=== PATIENT | male | born 1970 | race Caucasian/White ===

== ENCOUNTER 2017-04-15 16:00 | Inpatient (IN) | payer MEDICARE ==
[2017-04-15 16:45] LABS: GFR AFRICAN-AMERICAN > 60; GFR NON-AFRICAN AMERICAN > 60
[2017-04-15 16:46] LABS: ALB/GLOB RATIO 1.3 (1.0-2.1); ALT/SGPT 53 U/L (21-72); AST/SGOT 34 U/L (17-59); BASO # 0.1 K/uL (0.0-0.2); BASO % 0.8 % (0.0-2.0); BLOOD UREA NITROGEN 16 mg/dL (9-20); EOS # 0.2 K/uL (0.0-0.7); EOS % 2.3 % (0.0-4.0); HEMOGLOBIN 14.2 g/dL (12.0-18.0); LYMPH # 2.7 K/uL (1.0-4.3); LYMPH % 36.4 % (20.0-40.0); MEAN CELL VOLUME 87.6 fL (80.0-94.0); MEAN CORPUSCULAR HGB CONC 34.3 g/dL (33.0-37.0); MEAN PLATELET VOLUME 8.4 fL (7.2-11.7); MONO # 0.6 K/uL (0.0-0.8); MONO % 8.4 % (0.0-10.0); NEUT # 3.8 K/uL (1.8-7.0); NEUT % 52.1 % (50.0-75.0); NRBC % 0.1 % (0.0-2.0); RBC 4.74 Mil/uL (4.40-5.90); RED CELL DISTRIBUTION WIDTH 13.4 % (11.5-14.5); WHITE BLOOD COUNT 7.3 K/uL (4.8-10.8)
[2017-04-15 16:55] LABS: CK-MB 0.43 ng/mL (0.0-3.38)
--- NOTE | 2017-04-15 17:13 | RAD ---
HISTORY: cp COMPARISON: No prior. TECHNIQUE: Chest PA and lateral FINDINGS: LUNGS: No active pulmonary disease. PLEURA: No significant pleural effusion identified. No pneumothorax apparent. CARDIOVASCULAR: Borderline/mild cardiomegaly. OSSEOUS STRUCTURES: No significant abnormalities. VISUALIZED UPPER ABDOMEN: Normal. OTHER FINDINGS: None. IMPRESSION: No active disease.
--- NOTE | 2017-04-15 17:30 | C.PDOC ---
History Of Present Illness 46 y/o M c PMHx HLD p/w chest pain x 3 weeks. Pain is intermittent, occurring 3 times over the past 3 weeks in the setting of long walks. Pain resolves at rest. He denies associated dyspnea, nausea, vomiting, diaphoreiss, dizziness. Patient reports allergy to aspirin. Time Seen by Provider: 04/15/17 16:13 Chief Complaint (Nursing): Chest Pain Past Medical History Vital Signs: Last Vital Signs Temp 97.5 F L 04/15/17 16:03 Pulse 79 04/15/17 16:34 Resp 18 04/15/17 16:34 BP 128/86 04/15/17 16:34 Pulse Ox 98 04/15/17 16:34 - Medical History PMH: HTN, Hypercholesterolemia Surgical History: Back Surgery (2005) Family History: States: No Known Family Hx - Social History Hx Alcohol Use: No Hx Substance Use: No - Immunization History Hx Tetanus Toxoid Vaccination: No Hx Influenza Vaccination: No Hx Pneumococcal Vaccination: No Review Of Systems Except As Marked, All Systems Reviewed And Found Negative. Constitutional: Negative for: Fever Cardiovascular: Positive for: Chest Pain Respiratory: Negative for: Shortness of Breath Physical Exam - Physical Exam Additional Physical Exam Comments: Constitutional: No acute distress. Head: Normocephalic. Atraumatic. Eyes: PERRL. EOMI ENT: Moist mucous membranes. Neck: Supple. Cardiovascular: Regular rate. Radial pulses 2+ bilaterally. Chest: No tenderness. Respiratory: Clear to auscultation bilaterally. GI: Soft. Nontender. Nondistended. Back: No CVA tenderness. No midline tenderness. Musculoskeletal: No tenderness or swelling of extremities. Skin: No rash. Neurologic: Alert, no focal deficit. ED Course And Treatment - Laboratory Results Result Diagrams: 04/15/17 16:32 04/15/17 16:32 O2 Sat by Pulse Oximetry: 98 Medical Decision Making Medical Decision Making: EKG NSR 90 bpm, T wave inversions inferior, anterior, lateral. Discussed with Dr. Blood who states EKG today is different from EKG performed in office months ago. Accepts patient for cardiac observation. CXR no acute disease. Disposition Discussed With : Tao Blood - Disposition Disposition: HOSPITALIZED Disposition Time: 18:10 Condition: FAIR - POA Core Measure Indicators: Chest Pain - Clinical Impression Clinical Impression: Chest pain
--- NOTE | 2017-04-15 23:00 | CP.PCM.HP ---
History of Present Illness - History of Present Illness History of Present Illness: Cheif complain: chest pain HPI: 46 y/o wallisian M PMHx HLD, back pain , no cardiac history, p/w chest pain x 3 weeks, chest pain is pressure like, non radiating. Pain is intermittent , occurring 3 times over the past 3 weeks in the setting of long walks. Pain resolves at rest. He denies associated dyspnea, nausea, vomiting, diaphoreiss, dizziness. Patient reports allergy to aspirin. Present on Admission - Present on Admission Any Indicators Present on Admission: Yes History of DVT/PE: No History of Uncontrolled Diabetes: No Urinary Catheter: No Decubitus Ulcer Present: No Review of Systems - Review of Systems Systems not reviewed;Unavailable: Acuity of Condition - Constitutional Constitutional: Fatigue, Lethargy - EENT Eyes: absent: As Per HPI, Blind Spots, Blurred Vision, Change in Vision, Decreased Night Vision, Diplopia, Discharge, Dry Eye, Exophthalmos, Floaters, Irritation, Itchy Eyes, Loss of Peripheral Vision, Pain, Photophobia, Requires Corrective Lenses, Sees Flashes, Spots in Vision, Tunnel Vision, Other Visual Disturbances, Loss of Vision, Other Nose/Mouth/Throat: absent: As Per HPI, Epistaxis, Nasal Congestion, Nasal Discharge, Nasal Obstruction, Nasal Trauma, Nose Pain, Post Nasal Drip, Sinus Pain, Sinus Pressure, Bleeding Gums, Change in Voice, Dental Pain, Dry Mouth, Dysphagia, Halitosis, Hoarsness, Lip Swelling, Mouth Lesions, Mouth Pain, Odynophagia, Sore Throat, Throat Swelling, Tongue Swelling, Facial Pain, Neck Pain, Neck Mass, Other - Cardiovascular Cardiovascular: Chest Pain, Chest Pain with Activity. absent: As Per HPI, Acrocyanosis, Chest Pain at Rest, Claudication, Diaphoresis, Dyspnea, Dyspnea on Exertion, Edema, Irregular Heart Rhythm, Pain Radiating to Arm/Neck/Jaw, Leg Edema, Leg Ulcers, Lightheadedness, Orthopnea, Palpitations, Paroxysmal Nocturnal Dyspnea, Pedal Edema, Radiating Pain, Rapid Heart Rate, Slow Heart Rate, Syncope, Other - Respiratory Respiratory: absent: As Per HPI, Cough, Dyspnea, Hemoptysis, Dyspnea on Exertion , Wheezing, Snoring, Stridor, Pain on Inspiration, Chest Congestion, Excessive Mucous Production, Change in Mucous Color, Pain with Coughing, Other - Gastrointestinal Gastrointestinal: absent: As Per HPI, Abdominal Pain, Belching, Bloating, Change in Bowel Habits, Change in Stool Character, Coffee Ground Emesis, Constipation, Cramping, Diarrhea, Dyspepsia, Dysphagia, Early Satiety, Excessive Flatus, Fecal Incontinence, Heartburn, Hematemesis, Hematochezia, Loose Stools, Melena, Nausea, Odynophagia, Temesmus, Vomiting, Other Past Patient History - Past Social History Smoking Status: Never Smoked - CARDIAC Hx Hypercholesterolemia: Yes Hx Hypertension: Yes - PSYCHIATRIC Hx Substance Use: No - SURGICAL HISTORY Hx Surgeries: Yes - ANESTHESIA Hx Anesthesia: Yes Hx Anesthesia Reactions: No Meds Allergies/Adverse Reactions: Allergies Allergy/AdvReac Type Severity Reaction Status Date / Time aspirin Allergy RASH Verified 04/15/17 16:08 ibuprofen [From Motrin] Allergy RASH Verified 04/15/17 16:08 Physical Exam - Constitutional Appears: No Acute Distress - Head Exam Head Exam: ATRAUMATIC, NORMAL INSPECTION, NORMOCEPHALIC - Eye Exam Eye Exam: EOMI, Normal appearance, PERRL Pupil Exam: NORMAL ACCOMODATION, PERRL - ENT Exam ENT Exam: Mucous Membranes Moist, Normal Exam - Respiratory Exam Respiratory Exam: Clear to Auscultation Bilateral, NORMAL BREATHING PATTERN - Cardiovascular Exam Cardiovascular Exam: REGULAR RHYTHM - GI/Abdominal Exam GI & Abdominal Exam: Normal Bowel Sounds, Soft. absent: Tenderness - Rectal Exam Rectal Exam: Deferred - Neurological Exam Neurological exam: Alert, CN II-XII Intact, Normal Gait, Oriented x3, Reflexes Normal - Psychiatric Exam Psychiatric exam: Normal Affect, Normal Mood - Skin Skin Exam: Dry, Intact, Normal Color, Warm Results - Vital Signs Recent Vital Signs: Last Vital Signs Temp 97.5 F L 04/15/17 16:03 Pulse 82 04/15/17 19:33 Resp 12 04/15/17 19:33 BP 114/84 04/15/17 19:33 Pulse Ox 96 04/15/17 19:33 - Labs Result Diagrams: 04/15/17 16:32 04/15/17 16:32 Assessment & Plan (1) Back pain Status: Acute (2) Hyperlipidemia Status: Acute (3) Chest pain Assessment and Plan: rule out CA stress Myoveiw cardiac enzymes cardiac eval Status: Acute
[2017-04-15 23:28] LABS: HDL CHOLESTEROL 30 mg/dL (30-70)
[2017-04-15 23:31] LABS: CK-MB 0.46 ng/mL (0.0-3.38)
[2017-04-15 23:38] LABS: LDL CHOLESTEROL 135 mg/dL (0-129)
--- NOTE | 2017-04-16 08:35 | CP.PCM.PN ---
Subjective - Date & Time of Evaluation Date of Evaluation: 04/16/17 Time of Evaluation: 08:10 - Subjective Subjective: seen & examined, pt is for cardiac cath on , he has T-wave inversion in inf leads and cardaic enzymes are positive, although pt denies any chest pain now Objective - Vital Signs/Intake and Output Vital Signs (last 24 hours): Temp Pulse Resp BP Pulse Ox 97.7 F 67 17 126/84 97 04/16/17 07:10 04/16/17 07:10 04/16/17 07:10 04/16/17 07:10 04/16/17 07:10 - Medications Medications: Current Medications Clopidogrel Bisulfate (Plavix) 75 mg PO DAILY [facility] Enoxaparin Sodium (Lovenox) 40 mg SC DAILY [facility] Pneumococcal Polyvalent Vaccine (Pneumovax 23 Vaccine) 0.5 ml IM .ONCE ONE Stop: 04/16/17 10:01 Rosuvastatin Calcium (Crestor) 20 mg PO HS [facility] Last Admin: 04/15/17 23:14 Dose: 20 mg - Constitutional Appears: No Acute Distress - Head Exam Head Exam: ATRAUMATIC, NORMAL INSPECTION, NORMOCEPHALIC - Eye Exam Eye Exam: EOMI, Normal appearance, PERRL Pupil Exam: NORMAL ACCOMODATION, PERRL - Respiratory Exam Respiratory Exam: Decreased Breath Sounds, Rales, Rhonchi - Cardiovascular Exam Cardiovascular Exam: REGULAR RHYTHM, +S1, +S2. absent: Murmur - GI/Abdominal Exam GI & Abdominal Exam: Soft, Normal Bowel Sounds. absent: Tenderness Assessment and Plan (1) Back pain Status: Acute (2) Hyperlipidemia Status: Acute (3) Chest pain Assessment & Plan: pt is for cardica cath on Status: Acute
[2017-04-16] MEDS ORDERED: Enoxaparin 40 mg Syringe SC SCH (10:00)
[2017-04-16] MEDS ORDERED: Pneumococcal 23-Valent Vaccine IM ONE (10:00)
[2017-04-16 12:24] LABS: CK-MB 0.4 ng/mL (0.0-3.38)
--- NOTE | 2017-04-16 12:50 | CARD ---
APPROVED REPORT EKG Measurement Heart [id number] <Conclusion> Normal sinus rhythm Low voltage QRS T wave abnormality, consider inferior ischemia Abnormal ECG
--- NOTE | 2017-04-16 20:58 | CP.PCM.CON ---
History of Present Illness - History of Present Illness History of Present Illness: 46 y/o [place] male, a former smoker, history of hyperlipidemia prestented with recurring episodes of typical chest pain. No prior cardiac problems. arrived recently from [place] Past Patient History - Past Medical History & Family History Past Medical History?: Yes - Past Social History Smoking Status: Never Smoked - CARDIAC Hx Hypercholesterolemia: Yes Hx Hypertension: Yes - PULMONARY Hx Respiratory Disorders: No - NEUROLOGICAL Hx Neurological Disorder: No - HEENT Hx HEENT Problems: No - RENAL Hx Chronic Kidney Disease: No - ENDOCRINE/METABOLIC Hx Endocrine Disorders: No - HEMATOLOGICAL/ONCOLOGICAL Hx Blood Disorders: No - INTEGUMENTARY Hx Dermatological Problems: No - MUSCULOSKELETAL/RHEUMATOLOGICAL Hx Falls: No - GASTROINTESTINAL Hx Gastrointestinal Disorders: No - GENITOURINARY/GYNECOLOGICAL Hx Genitourinary Disorders: No - PSYCHIATRIC Hx Substance Use: No - SURGICAL HISTORY Hx Surgeries: Yes - ANESTHESIA Hx Anesthesia: Yes Hx Anesthesia Reactions: No Meds Allergies/Adverse Reactions: Allergies Allergy/AdvReac Type Severity Reaction Status Date / Time aspirin Allergy RASH Verified 04/15/17 16:08 ibuprofen [From Motrin] Allergy RASH Verified 04/15/17 16:08 - Medications Medications: Current Medications Clopidogrel Bisulfate (Plavix) 75 mg PO DAILY [facility] Last Admin: 04/16/17 10:11 Dose: 75 mg Enoxaparin Sodium (Lovenox) 70 mg SC BID [facility] Rosuvastatin Calcium (Crestor) 40 mg PO [facility] Results - Vital Signs Recent Vital Signs: Last Vital Signs Temp 97.8 F 04/16/17 15:30 Pulse 61 04/16/17 16:00 Resp 18 04/16/17 15:30 BP 131/86 04/16/17 15:30 Pulse Ox 97 04/16/17 15:30 - Labs Result Diagrams: 04/15/17 16:32 04/15/17 16:32 Assessment & Plan - Assessment and Plan (Free Text) Assessment: Mike pain, PR was ruled out Inferior ischemic EKG changes hyperlipidemia Plan: Contine Plavis and lopressor Start crestor 40 mg daily and therapeutic Lovenox Cath was recommended NB. Dictation system is down and that limited my note
[2017-04-17] MEDS: Enoxaparin 80 mg Syringe SC SCH ×2 (09:46→17:46)
--- NOTE | 2017-04-17 11:49 | CARD ---
APPROVED REPORT EKG Measurement Heart [id number] <Conclusion> Normal sinus rhythm Nonspecific T wave abnormality Abnormal ECG
--- NOTE | 2017-04-17 16:20 | CP.PCM.PN ---
Subjective - Date & Time of Evaluation Date of Evaluation: 04/17/17 Time of Evaluation: 16:18 - Subjective Subjective: no c/p or SOB Objective - Vital Signs/Intake and Output Vital Signs (last 24 hours): Temp Pulse Resp BP Pulse Ox 98.2 F 81 18 123/83 98 04/17/17 15:48 04/17/17 15:48 04/17/17 15:48 04/17/17 15:48 04/17/17 15:48 Intake and Output: 04/17/17 04/17/17 06:59 18:59 Intake Total 120 Output Total 250 Balance -130 - Medications Medications: Current Medications Clopidogrel Bisulfate (Plavix) 75 mg PO DAILY [facility] Last Admin: 04/17/17 09:46 Dose: 75 mg Enoxaparin Sodium (Lovenox) 70 mg SC BID [facility] Last Admin: 04/17/17 09:46 Dose: 70 mg Rosuvastatin Calcium (Crestor) 40 mg PO HS [facility] Last Admin: 04/16/17 21:55 Dose: 40 mg - Head Exam Head Exam: NORMAL INSPECTION - Eye Exam Eye Exam: Normal appearance - ENT Exam ENT Exam: Mucous Membranes Moist - Respiratory Exam Respiratory Exam: NORMAL BREATHING PATTERN - Cardiovascular Exam Cardiovascular Exam: REGULAR RHYTHM - GI/Abdominal Exam GI & Abdominal Exam: Normal Bowel Sounds - Back Exam Back Exam: NORMAL INSPECTION Assessment and Plan - Assessment and Plan (Free Text) Assessment: C/P GA r/o Hyperlipidemia Plan: NPO after mid night for Cath in AM
[2017-04-17] MEDS: Magnesium Hydroxide Susp 30 ml UD PO SCH (18:24)
--- NOTE | 2017-04-17 20:24 | CARD ---
APPROVED REPORT EXAM: Two-dimensional and M-mode echocardiogram with Doppler and color Doppler. Other Information Quality : FairRhythm : NSR INDICATION Chest Pain RISK FACTORS Hypertension Hyperlipidemia M-Mode DIMENSIONS RVDd1.77 (2.1-3.2cm)Left Atrium (MM)2.78 (2.5-4.0cm) IVSd0.94 (0.7-1.1cm)Aortic Root3.51 (2.2-3.7cm) LVDd4.30 (4.0-5.6cm)Aortic Cusp Exc.2.26 (1.5-2.0cm) PWd0.87 (0.7-1.1cm)FS (%) 41 % LVDs2.53 (2.0-3.8cm)LVEF (%)72 (>50%) Mitral Valve MV E Njeedyyw26.2cm/sMV A Ooqxrjrt67.2cm/sE/A ratio1.0 TDI E/Lateral E'0.0E/Medial E'0.0 Tricuspid Valve TR Peak Adhkgfmu708by/sTR Peak Gr.4yqIgOOBE78vsSf <Conclusion> normal size la,lv & ra rv. normal lv wall motion,thickness,systolic & diastolic function with lvef of 65-70%. normal aortic,mitral,tv & pv. trace mr,tr & pi with normal pulmonary systolic pressures of 20 mm of hg. trivial posterior pericardial effusion. normal size aortic root & ivc.
--- NOTE | 2017-04-17 21:28 | CP.PCM.PN ---
Subjective - Date & Time of Evaluation Date of Evaluation: 04/17/17 Time of Evaluation: 19:45 - Subjective Subjective: Pt seen & examined, NPO after mid night for Cath in AM Objective - Vital Signs/Intake and Output Vital Signs (last 24 hours): Temp Pulse Resp BP Pulse Ox 98.2 F 81 18 123/83 98 04/17/17 15:48 04/17/17 15:48 04/17/17 15:48 04/17/17 15:48 04/17/17 15:48 - Medications Medications: Current Medications Clopidogrel Bisulfate (Plavix) 75 mg PO DAILY [facility] Last Admin: 04/17/17 09:46 Dose: 75 mg Enoxaparin Sodium (Lovenox) 70 mg SC BID [facility] Last Admin: 04/17/17 17:46 Dose: 70 mg Magnesium Hydroxide (Milk Of Magnesia) 30 ml PO DAILY [facility] Last Admin: 04/17/17 18:24 Dose: 30 ml Rosuvastatin Calcium (Crestor) 40 mg PO HS [facility] Last Admin: 04/16/17 21:55 Dose: 40 mg - Constitutional Appears: No Acute Distress - Head Exam Head Exam: ATRAUMATIC, NORMAL INSPECTION, NORMOCEPHALIC - Eye Exam Eye Exam: EOMI, Normal appearance, PERRL Pupil Exam: NORMAL ACCOMODATION, PERRL - Respiratory Exam Respiratory Exam: Clear to Ausculation Bilateral, NORMAL BREATHING PATTERN - Cardiovascular Exam Cardiovascular Exam: REGULAR RHYTHM, +S1, +S2. absent: Murmur - GI/Abdominal Exam GI & Abdominal Exam: Soft, Normal Bowel Sounds. absent: Tenderness - Back Exam Back Exam: NORMAL INSPECTION - Neurological Exam Neurological Exam: Alert, Awake, CN II-XII Intact, Normal Gait, Oriented x3 Assessment and Plan (1) Back pain Status: Acute (2) Hyperlipidemia Status: Acute (3) Chest pain Assessment & Plan: NPO after mid night for Cath in AM Status: Acute
[2017-04-18] MEDS: Enoxaparin 80 mg Syringe SC SCH ×2 (09:09→18:12)
[2017-04-18] MEDS: Magnesium Hydroxide Susp 30 ml UD PO SCH (09:09)
--- NOTE | 2017-04-18 10:18 | CP.PCM.PN ---
Subjective - Date & Time of Evaluation Date of Evaluation: 04/18/17 Time of Evaluation: 08:30 - Subjective Subjective: Pt seen and examined, clinically unchanged, pt is for angioplasty tomorrow to his RCA Objective - Vital Signs/Intake and Output Vital Signs (last 24 hours): Temp Pulse Resp BP Pulse Ox 98.3 F 64 18 121/85 97 04/18/17 07:05 04/18/17 07:05 04/18/17 07:05 04/18/17 07:05 04/18/17 07:05 Intake and Output: 04/18/17 04/18/17 06:59 18:59 Intake Total 450 Balance 450 - Medications Medications: Current Medications Clopidogrel Bisulfate (Plavix) 75 mg PO DAILY [facility] Last Admin: 04/18/17 09:09 Dose: Not Given Enoxaparin Sodium (Lovenox) 70 mg SC BID [facility] Last Admin: 04/18/17 09:09 Dose: Not Given Magnesium Hydroxide (Milk Of Magnesia) 30 ml PO DAILY [facility] Last Admin: 04/18/17 09:09 Dose: Not Given Rosuvastatin Calcium (Crestor) 40 mg PO HS [facility] Last Admin: 04/17/17 21:37 Dose: 40 mg - Constitutional Appears: No Acute Distress - Head Exam Head Exam: ATRAUMATIC, NORMAL INSPECTION, NORMOCEPHALIC - Eye Exam Eye Exam: EOMI, Normal appearance, PERRL Pupil Exam: NORMAL ACCOMODATION, PERRL - Cardiovascular Exam Cardiovascular Exam: REGULAR RHYTHM, +S1, +S2. absent: Murmur - GI/Abdominal Exam GI & Abdominal Exam: Soft, Normal Bowel Sounds. absent: Tenderness - Rectal Exam Rectal Exam: Deferred Assessment and Plan (1) Back pain Status: Acute (2) Hyperlipidemia Status: Acute (3) Chest pain Status: Acute
[2017-04-18 12:15] LABS: INR 1.1; PROTHROMBIN TIME 12.6 SECONDS (9.7-12.2)
[2017-04-18] MEDS ORDERED: Midazolam 2 MG/2 ML VIAL ONE ×3 (12:21→13:55)
[2017-04-18] MEDS ORDERED: Iohexol 350mgl/ml 50 ML ONE (12:30)
[2017-04-18] MEDS ORDERED: DiphenhydrAMINE 50 mg/ml Inj ONE (12:33)
--- NOTE | 2017-04-19 02:28 | CP.PCM.PN ---
Subjective - Date & Time of Evaluation Date of Evaluation: 04/19/17 Time of Evaluation: 19:00 - Subjective Subjective: pt seen and examined, s/p angioplasty on post op care denies any complains, chest pain Objective - Vital Signs/Intake and Output Vital Signs (last 24 hours): Temp Pulse Resp BP Pulse Ox 98.0 F 75 20 110/77 97 04/18/17 23:45 04/19/17 00:25 04/18/17 23:45 04/18/17 23:45 04/18/17 23:45 - Medications Medications: Current Medications Clopidogrel Bisulfate (Plavix) 75 mg PO DAILY [facility] Last Admin: 04/18/17 09:09 Dose: Not Given Enoxaparin Sodium (Lovenox) 70 mg SC BID [facility] Last Admin: 04/18/17 18:12 Dose: 70 mg Magnesium Hydroxide (Milk Of Magnesia) 30 ml PO DAILY [facility] Last Admin: 04/18/17 09:09 Dose: Not Given Rosuvastatin Calcium (Crestor) 40 mg PO HS [facility] Last Admin: 04/18/17 22:03 Dose: 40 mg - Labs Labs: PT 12.6 SECONDS (9.7-12.2) H 04/18/17 11:55 INR 1.1 04/18/17 11:55 APTT 33 SECONDS (21-34) 04/18/17 11:55 - Constitutional Appears: No Acute Distress - Head Exam Head Exam: ATRAUMATIC, NORMAL INSPECTION, NORMOCEPHALIC - Eye Exam Eye Exam: EOMI, Normal appearance, PERRL Pupil Exam: NORMAL ACCOMODATION, PERRL - Respiratory Exam Respiratory Exam: Clear to Ausculation Bilateral, NORMAL BREATHING PATTERN - Cardiovascular Exam Cardiovascular Exam: REGULAR RHYTHM, +S1, +S2. absent: Murmur - GI/Abdominal Exam GI & Abdominal Exam: Soft, Normal Bowel Sounds. absent: Tenderness - Neurological Exam Neurological Exam: Alert, Awake, CN II-XII Intact, Normal Gait, Oriented x3 Assessment and Plan (1) Back pain Status: Acute (2) Hyperlipidemia Status: Acute (3) Chest pain Status: Acute
--- NOTE | 2017-04-19 06:36 | CARD ---
APPROVED REPORT EKG Measurement Heart [id number] <Conclusion> Normal sinus rhythm Low voltage QRS T wave abnormality, consider inferior ischemia Abnormal ECG
[2017-04-19] MEDS: Enoxaparin 80 mg Syringe SC SCH ×2 (09:07→18:27)
[2017-04-19] MEDS: Magnesium Hydroxide Susp 30 ml UD PO SCH (09:08)
[2017-04-20 08:30] VITALS: PULSE 99
[2017-04-20 08:41] VITALS: BP 118/83; RESP 18; TEMP 98.1; O2SAT 97
[2017-04-20] MEDS ORDERED: Metoprolol Succinate 12.5 mg XL PO SCH (10:00)
[2017-04-20] MEDS ORDERED: Magnesium Hydroxide Susp 30 ml UD PO SCH (10:00)
[2017-04-20] MEDS ORDERED: Enoxaparin 80 mg Syringe SC SCH (10:00)
--- NOTE | 2017-04-24 21:45 | CP.PCM.DIS ---
Provider - Provider Date of Admission: 04/16/17 17:02 Attending physician: Tao Blood MD Time Spent in preparation of Discharge (in minutes): 45 Diagnosis - Discharge Diagnosis (1) Back pain Status: Acute (2) Hyperlipidemia Status: Acute (3) Chest pain Status: Acute Hospital Course - Lab Results Lab Results: Most Recent Lab Values WBC 7.3 K/uL (4.8-10.8) 04/15/17 16:32 RBC 4.74 Mil/uL (4.40-5.90) 04/15/17 16:32 Hgb 14.2 g/dL (12.0-18.0) 04/15/17 16:32 Hct 41.5 % (35.0-51.0) 04/15/17 16:32 MCV 87.6 fL (80.0-94.0) 04/15/17 16:32 MCH 30.0 pg (27.0-31.0) 04/15/17 16:32 MCHC 34.3 g/dL (33.0-37.0) 04/15/17 16:32 RDW 13.4 % (11.5-14.5) 04/15/17 16:32 Plt Count 237 K/uL (130-400) 04/15/17 16:32 MPV 8.4 fL (7.2-11.7) 04/15/17 16:32 Neut % (Auto) 52.1 % (50.0-75.0) 04/15/17 16:32 Lymph % (Auto) 36.4 % (20.0-40.0) 04/15/17 16:32 Carter % (Auto) 8.4 % (0.0-10.0) 04/15/17 16:32 Eos % (Auto) 2.3 % (0.0-4.0) 04/15/17 16:32 Baso % (Auto) 0.8 % (0.0-2.0) 04/15/17 16:32 Neut # 3.8 K/uL (1.8-7.0) 04/15/17 16:32 Lymph # 2.7 K/uL (1.0-4.3) 04/15/17 16:32 Carter # 0.6 K/uL (0.0-0.8) 04/15/17 16:32 Eos # 0.2 K/uL (0.0-0.7) 04/15/17 16:32 Baso # 0.1 K/uL (0.0-0.2) 04/15/17 16:32 PT 12.6 SECONDS (9.7-12.2) H 04/18/17 11:55 INR 1.1 04/18/17 11:55 APTT 33 SECONDS (21-34) 04/18/17 11:55 Sodium 140 mmol/L (132-148) 04/15/17 16:32 Potassium 3.7 mmol/L (3.6-5.2) 04/15/17 16:32 Chloride 103 mmol/L (98-107) 04/15/17 16:32 Carbon Dioxide 26 mmol/L (22-30) 04/15/17 16:32 Anion Gap 15 (10-20) 04/15/17 16:32 BUN 16 mg/dL (9-20) 04/15/17 16:32 Creatinine 1.1 MG/DL (0.8-1.5) 04/15/17 16:32 Est GFR ( Amer) > 60 04/15/17 16:32 Est GFR (Non-Af Amer) > 60 04/15/17 16:32 Random Glucose 110 mg/dL (75-110) 04/15/17 16:32 Calcium 9.0 mg/dl (8.6-10.4) 04/15/17 16:32 Total Bilirubin 0.6 mg/dL (0.2-1.3) 04/15/17 16:32 AST 34 U/L (17-59) 04/15/17 16:32 ALT 53 U/L (21-72) 04/15/17 16:32 Alkaline Phosphatase 80 U/L (38-126) 04/15/17 16:32 Total Creatine Kinase 63 U/L (55-170) 04/16/17 11:51 CK-MB (Mass) 0.40 ng/mL (0.0-3.38) 04/16/17 11:51 Troponin I 0.0220 ng/mL (0.00-0.120) 04/15/17 16:32 Troponin I, Quant 0.0320 ng/mL (0.00-0.120) 04/16/17 11:51 Total Protein 7.1 g/dL (6.3-8.3) 04/15/17 16:32 Albumin 4.0 g/dL (3.5-5.0) 04/15/17 16:32 Globulin 3.1 gm/dL (2.2-3.9) 04/15/17 16:32 Albumin/Globulin Ratio 1.3 (1.0-2.1) 04/15/17 16:32 Triglycerides 332 mg/dL (0-149) H 04/15/17 23:06 Cholesterol 203 mg/dL (0-199) H 04/15/17 23:06 LDL Cholesterol Direct 135 mg/dL (0-129) H 04/15/17 23:06 HDL Cholesterol 30 mg/dL (30-70) 04/15/17 23:06 - Hospital Course Hospital Course: A/P 46 year old male admitted with chest pain a febrile s/p angioplasty stable for discharge home today and f/u with PMD office in 1 week discharge plan discussed with patient who understands and agrees with plan Pt instructed to returns to ED if symptoms returns Discharge Exam - Head Exam Head Exam: ATRAUMATIC, NORMAL INSPECTION, NORMOCEPHALIC - Eye Exam Eye Exam: EOMI, Normal appearance, PERRL Pupil Exam: NORMAL ACCOMODATION, PERRL - ENT Exam ENT Exam: Mucous Membranes Moist - Respiratory Exam Respiratory Exam: Clear to PA & Lateral, NORMAL BREATHING PATTERN - Cardiovascular Exam Cardiovascular Exam: REGULAR RHYTHM, +S1, +S2 - GI/Abdominal Exam GI & Abdominal Exam: Normal Bowel Sounds Discharge Plan - Follow Up Plan Condition: FAIR Disposition: HOME/ ROUTINE Instructions: Chest Pain (DC)
--- NOTE | 2017-05-15 07:56 | CARDCATH ---
The patient is a 46-year-old Turk[place] male who has a history of hypertension. He presents because of recurrent atypical chest pain. ND was ruled out. Cardiac catheterization was recommended. The procedure and its risks were explained to the patient who understood them and agreed for the procedure. PROCEDURES: Left and right coronary angiogram was performed with 6-inch JL4 and JR4 diagnostic catheter. ANGIOGRAPHIC FINDINGS: Selective injection of the left coronary artery revealed left main to be a normal vessel, left main Trifurcated into medium size LAD, a Ramus and a medium size circumflex artery. The LAD had 80% discrete stenosis in its mid portion and mid circumflex artery had 60% stenosis. The ramus intermedius branch was unremarkable. Selective injection of the right coronary artery revealed a medium size dominant vessel. The RCA had critical distal stenosis before its distal bifurcation. Left ventriculogram performed in BRAY projection revealed normal wall motion. Ejection fraction is maintained at 55%. ASSESSMENT: Critical distal coronary artery disease with 80% discrete stenosis of the mid LAD. PLAN: The patient will be transferred to [facility] for PCI to the distal right coronary artery. Reuben Clement MD [facility]
== END 2017-04-20 15:55 | disposition home or self-care (01) | DRG 287 ==
LOC: C.ER 16:00 → C.9E 17:21 → C.6T 23:53 → OBSVTOIN 04-16 17:02 → UNDODISIN 04-19 10:30 → C.6T 04-19 14:22
PROVIDERS: ADMIT Internal Medicine; ATTEND Internal Medicine
PROC: 4A023N7 Measurement of Cardiac Sampling and Pressure, Left Heart, Percutaneous Approach (ICD-10-PCS; principal; 2017-04-20)
PROC: B201YZZ Plain Radiography of Multiple Coronary Arteries using Other Contrast (ICD-10-PCS; 2017-04-20)
DX: I25.10 Atherosclerotic heart disease of native coronary artery without angina pectoris (principal); E78.5 Hyperlipidemia, unspecified; M54.9 Dorsalgia, unspecified; E78.00 Pure hypercholesterolemia, unspecified; Z88.6 Allergy status to analgesic agent; Z87.891 Personal history of nicotine dependence